=== PATIENT | female | born 1985 | race Caucasian/White ===

== ENCOUNTER → 2016-09-24 | Outpatient (CLI) | payer BC ==
[~2016-09-24] MED LIST: ENOX40IN SQ; HCG INJECTION IM; HYDR-5688 PO; KETO10TA PO; ONDA4TAB10 SL; PRLUDL5 PO; PROG1INJ
[2016-09-24 17:44] LABS: PROGESTERONE < 0.21 ng/mL
== END | disposition home or self-care (01) ==
LOC: C.LAB 10:27
PROVIDERS: ATTEND Specialist
DX: Z31.41 Encounter for fertility testing (principal); O09.01 Supervision of pregnancy with history of infertility, first trimester

== ENCOUNTER → 2016-09-28 | Outpatient (CLI) | payer BC | END | disposition home or self-care (01) | LOC: C.LAB 09:00 | PROVIDERS: ATTEND Specialist | DX: Z31.41 Encounter for fertility testing (principal) ==

== ENCOUNTER → 2016-09-30 | Outpatient (CLI) | payer BC | END | disposition home or self-care (01) | LOC: C.LAB 12:42 | PROVIDERS: ATTEND Specialist | DX: Z31.41 Encounter for fertility testing (principal) ==

== ENCOUNTER 2016-10-05 08:19 | Emergency (ER) | payer BC, OTHER ==
[~2016-10-05] VITALS: Ht 167.6 cm; Wt 58.3 kg
[2016-10-05 08:23] VITALS: TEMP 36.8; Ht 167.6 cm; Wt 58.3 kg
[2016-10-05] MEDS ORDERED: SODIUM CHLORIDE 0.9% 1000ML 1,000 ML IV STA (08:28)
[2016-10-05] MEDS ORDERED: MoRPHine SULFATE 4 MG/ML 1 ML CARP\\VIAL IV STA (08:28)
[2016-10-05] MEDS ORDERED: ONDANSETRON INJ 2 MG/ML 2 ML VIAL IV STA (08:28)
--- NOTE | 2016-10-05 08:41 | EMERGENCY ROOM VISIT NOTE ---
History First contact with patient: 08:21 Chief Complaint: ABDOMINAL PAIN Stated Complaint: AB PAIN Nursing Triage Summary: PATIENT PRESENTS VIA AMBULANCE WITH C/O SEVERE RIGHT ABDOMINAL PAIN PATIENT STATES THE PAIN BEGAN AT 0200 TODAY STATES PAIN IS RLQ AND WRAPS AROUND TO HER BACK PT STATES SHE HAS PASSED OUT ONCE DUE TO PAIN PATIENT STATES SHE IS ON OVARY STIMULATING HORMONES HAS BEEN ON IVF MEDICATIONS FOR THE LAST YEAR STATES SHE HAS NEVER HAD PAIN LIKE THIS BEFORE LMP 09/10/2016 LAST BOWEL MOVEMENT WAS LAST NIGHT PT HAS A HISTORY OF A GASTRIC SLEEVE 04/2015 History of Present Illness The patient is a 31 year old female who presents to the Emergency Room with complaints of right lower quadrant abdominal pain which began in the middle of the name but worsened approximately one hour ago. The patient states that she had an "uncomfortable" feeling in her right lower abdomen around 2 AM. She states that the pain became very severe approximately 1.5 hours ago. She states that she called her , but then had a syncopal episode due to the pain and decided to call 911. The patient has been nauseous, but has not vomited. She denies any associated urinary symptoms. She is currently in the process of IVF and has been for the past year. Her last menstrual period was . She denies any vaginal bleeding or discharge. She has a history of a gastric sleeve a few years ago but denies any other abdominal surgeries. She does report a history of kidney stones. She rates her discomfort a 10/10. She has not taken anything for the pain. Review of Systems A complete 10-point Review of Systems was discussed with the patient, with pertinent positives and negatives listed in the History of Present Illness. All remaining Review of Systems questions can be considered negative unless otherwise specified. Social History Smoking Status: Never Smoker Current/Historical Medications Scheduled Ondasetron Odt (Zofran Odt), 4 MG SL Q6H [Hcg Injection], 1 DOSE IM UD Scheduled PRN Hydrocodone/Acetaminophen 5MG/325MG ([place] 5MG/325MG), 1-2 TABLET PO Q4H PRN for Pain Ketorolac Tromethamine (Toradol), 1 TAB PO TID PRN for Pain Allergies Coded Allergies: No Known Allergies (Unverified , 10/05/16) Physical Exam Vital Signs Date Time Temp Pulse Resp B/P Pulse Ox O2 Delivery O2 Flow Rate FiO2 10/05/16 09:58 67 16 108/66 100 Room Air 10/05/16 08:23 36.8 66 18 117/71 100 Room Air Physical Exam VITALS: Vitals are noted on the nurse's note and reviewed by myself. Vital signs stable. GENERAL: This is a 31-year-old female, in moderate distress secondary to pain, nondiaphoretic, well-developed well-nourished. HEART: Regular rate and rhythm without murmurs gallops or rubs. LUNGS: Clear to auscultation bilaterally without wheezes, rales or rhonchi. ABDOMEN: Positive bowel sounds x 4. Moderate tenderness to the right lower quadrant and suprapubic region with some guarding. NEURO: Patient was alert and oriented to person place and time. Medical Decision & Procedures ER Provider Diagnostic Interpretation: ULTRASOUND OF THE PELVIS FINDINGS: Uterus: The anteflexed uterus is normal in size and echotexture, measuring 8.2 x 5.2 x 6.5 cm. A partially exophytic fibroid arises from the posterior fundus and measures up to 2.1 cm. Small Nabothian cysts are incidentally noted in the cervix. Endometrium: The endometrium is normal in appearance, and the endometrial stripe is normal in thickness measuring up to 0.4 cm. Ovaries: The ovaries are normal in size and morphology. The right ovary measures 5.6 x 3.6 x 4.2 cm and the left ovary measures 5.4 x 3.3 x 4.7 cm. There are numerous large bilateral ovarian follicles. The largest on the right measures up to 2.5 cm and the largest on the left measures up to 2.6 cm. Normal Doppler waveforms are shown within both ovaries. Pelvis: There is trace free fluid in the cul-de-sac. No concerning adnexal lesion is seen. IMPRESSION: 1. No acute sonographic abnormality is identified in the pelvis. 2. The ovaries appear mildly enlarged and there are numerous bilateral follicles measuring up to 2.6 cm. This is likely related to the reported history of IVF treatment. Normal Doppler waveforms are shown in both ovaries. 3. There is trace and likely physiologic free fluid in the cul-de-sac. Laboratory Results 10/05/16 08:26 Red Blood Count 4.06, Mean Corpuscular Volume 88.2, Mean Corpuscular Hemoglobin 30.3, Mean Corpuscular Hemoglobin Concent 34.4, Mean Platelet Volume 10.9, Neutrophils (%) (Auto) 77.4, Lymphocytes (%) (Auto) 17.8, Monocytes (%) (Auto) 3.9, Eosinophils (%) (Auto) 0.4, Basophils (%) (Auto) 0.2, Neutrophils # (Auto) 8.24, Lymphocytes # (Auto) 1.90, Monocytes # (Auto) 0.42, Eosinophils # (Auto) 0.04, Basophils # (Auto) 0.02 10/05/16 08:26 Test 10/05/16 08:26 10/05/16 08:30 White Blood Count 10.65 K/uL (4.8-10.8) Red Blood Count 4.06 M/uL (4.2-5.4) Hemoglobin 12.3 g/dL (12.0-16.0) Hematocrit 35.8 % (37-47) Mean Corpuscular Volume 88.2 fL (80-100) Mean Corpuscular Hemoglobin 30.3 pg (25-34) Mean Corpuscular Hemoglobin Concent 34.4 g/dl (32-36) Platelet Count 239 K/uL (130-400) Mean Platelet Volume 10.9 fL (7.4-10.4) Neutrophils (%) (Auto) 77.4 % Lymphocytes (%) (Auto) 17.8 % Monocytes (%) (Auto) 3.9 % Eosinophils (%) (Auto) 0.4 % Basophils (%) (Auto) 0.2 % Neutrophils # (Auto) 8.24 K/uL (1.4-6.5) Lymphocytes # (Auto) 1.90 K/uL (1.2-3.4) Monocytes # (Auto) 0.42 K/uL (0.11-0.59) Eosinophils # (Auto) 0.04 K/uL (0-0.5) Basophils # (Auto) 0.02 K/uL (0-0.2) RDW Standard Deviation 39.6 fL (36.4-46.3) RDW Coefficient of Variation 12.3 % (11.5-14.5) Immature Granulocyte % (Auto) 0.3 % Immature Granulocyte # (Auto) 0.03 K/uL (0.00-0.02) Anion Gap 11.0 mmol/L (3-11) Est Creatinine Clear Calc Drug Dose 99.1 ml/min Estimated GFR () 122.2 Estimated GFR (Non- 105.5 BUN/Creatinine Ratio 21.5 (10-20) Calcium Level 9.0 mg/dl (8.5-10.1) Total Bilirubin 0.4 mg/dl (0.2-1) Aspartate Amino Transf (AST/SGOT) 11 U/L (15-37) Alanine Aminotransferase (ALT/SGPT) 16 U/L (12-78) Alkaline Phosphatase 60 U/L (45-117) Total Protein 6.9 gm/dl (6.4-8.2) Albumin 3.6 gm/dl (3.4-5.0) Globulin 3.3 gm/dl (2.5-4.0) Albumin/Globulin Ratio 1.1 (0.9-2) Lipase 127 U/L (73-393) Urine Color DK YELLOW Urine Appearance CLOUDY (CLEAR) Urine pH 7.5 (4.5-7.5) Urine Specific [place] 1.039 (1.000-1.030) Urine Protein 1+ (NEG) Urine Glucose (UA) NEG (NEG) Urine Ketones TRACE (NEG) Urine Occult Blood 3+ (NEG) Urine Nitrite NEG (NEG) Urine Bilirubin NEG (NEG) Urine Urobilinogen NEG (NEG) Urine Leukocyte Esterase TRACE (NEG) Urine WBC (Auto) 1-5 /hpf (0-5) Urine RBC (Auto) >30 /hpf (0-4) Urine Hyaline Casts (Auto) >30 /lpf (0-5) Urine Epithelial Cells (Auto) >30 /lpf (0-5) Urine Bacteria (Auto) NEG (NEG) Urine Renal Epithelial Cells /lpf (0-5) Urine Pathogenic Casts /lpf (0) Urine Mucus PRESENT (NONE PRSENT) Urine Test POS (NEG) Medications Administered Medications (Trade) Dose Ordered Sig/Livia Route Start Time Stop Time Status Last Admin Dose Admin Sodium Chloride (Nss 1000ml) 1,000 ml @ 999 mls/hr Q1H1M STAT IV 10/05/16 08:28 10/05/16 09:28 DC 10/05/16 08:37 999 MLS/HR Ondansetron HCl (Zofran Inj) 4 mg NOW STAT IV 10/05/16 08:28 10/05/16 08:30 DC 10/05/16 08:36 4 MG Medical Decision Differential diagnosis includes ovarian cyst, ovarian torsion, ectopic , dysmenorrhea, among others. The patient was evaluated as above. Labs were drawn and IV access was obtained. Imaging studies were performed and read by radiology as above. The patient was initially ordered 4 mg morphine for her discomfort, but her pain resolved without treatment. The patient was reassessed multiple times during their stay in the emergency department and remained in stable condition. The patient is a 31-year-old female who presents today complaining of right lower quadrant abdominal pain. Labs revealed no leukocytosis, anemia or concerning electrolyte abnormalities. Urinalysis was not suggestive of infection. Urine beta hCG was positive, but this is consistent with her IVF therapy. She did receive a triggering injection last night. I did speak with the patient's IVF specialist, who did state that I should expect to see enlarged ovarian follicles on an ultrasound. Ultrasound was performed to rule out torsion and did show bilateral ovarian follicles but no evidence of torsion or ectopic . The patient felt much better after urinating and I do feel that her symptoms may be consistent with renal colic rather than an ovarian source. Additionally, the patient was very anxious that there may be something wrong with her ovary but felt much better after hearing that her ultrasound results were negative. The patient did have 3+ blood in her urine, consistent with renal colic. I discussed options of care with the patient and her , and they agreed that further imaging is not necessary at this time. The patient will be treated conservatively. She was given a prescription for pain medication, Zofran and Toradol and will follow-up with her primary care provider as needed. She has a follow-up scheduled with her IVF specialist tomorrow. She will return sooner for worsening pain or any other new/concerning symptoms. Based on the patient's presentation, lab results, and imaging studies, I feel the patient is stable for outpatient treatment. The patient's case was reviewed with Dr. Coelho, ED attending physician, who agreed with my assessment and treatment plan. Discharge instructions were reviewed with the patient. The patient verbalized understanding of my assessment and treatment plan and was discharged home in good condition. Impression Primary Impression: Renal colic on right side Departure Information Dispostion Home / Self-Care Condition GOOD Prescriptions Ketorolac Tromethamine (TORADOL) 10 Mg Tab 1 TAB PO TID Y for Pain for 5 Days, #15 TAB Prov: Angie Alas PA-C 10/05/16 Ondasetron Odt (ZOFRAN ODT) 4 Mg Tab 4 MG SL Q6H for Nausea, #20 TAB Prov: Angie Alas PA-C 10/05/16 Hydrocodone/Acetaminophen 5MG/325MG ([place] 5MG/325MG) Tab 1-2 TABLET PO Q4H Y for Pain, #20 TAB For Initial Treatment Prov: Angie Alas PA-C 10/05/16 Referrals (PCP) Patient Instructions My [facility] Additional Instructions You have been treated in the Emergency Department for renal colic. Labs today were unremarkable and pelvic ultrasound did not show any evidence of torsion. You have been prescribed [place] to be used for pain control. Take 1-2 tablets every 4-6 hours as needed for pain. This is a narcotic medication. You cannot drive or consume alcohol while on this medicine. This medicine should only be used for pain that cannot be controlled with [id number] pain medicines. You have been prescribed Zofran to be used for any nausea or vomiting. Take as prescribed. Toradol 3 times daily as needed for pain. Follow-up with your primary care provider/HOME OFFICE REPRESENTATIVE as needed. Return to the emergency department with worsening abdominal pain, fevers, vomiting or any other new/concerning symptoms.
[2016-10-05 09:02] LABS: BASO % 0.2 %; BASO ABS # 0.02 K/uL (0-0.2); COMPLETE YES; EOS % 0.4 %; HEMATOCRIT 35.8 % (37-47); IG% 0.3 %; LYMPH % 17.8 %; MEAN CELL VOLUME 88.2 fL (80-100); MEAN CORPUSCULAR HEMOGLOBIN 30.3 pg (25-34); MEAN CORPUSCULAR HGB CONC 34.4 g/dl (32-36); MEAN PLATELET VOLUME 10.9 fL (7.4-10.4); MONO % 3.9 %; NEUT % 77.4 %; PLATELET COUNT 239 K/uL (130-400); RED BLOOD COUNT 4.06 M/uL (4.2-5.4); WHITE BLOOD COUNT 10.65 K/uL (4.8-10.8)
[2016-10-05 09:07] LABS: URINE APPEARANCE CLOUDY (CLEAR); URINE COLOR DK YELLOW; URINE EPITHELIAL CELL AUTO >30 /lpf (0-5); URINE NITRITE NEG (NEG); URINE PH 7.5 (4.5-7.5); URINE SPECIFIC GRAVITY 1.039 (1.000-1.030); UROBILINOGEN NEG (NEG); ZZUR CULT IF INDIC CLEAN CATCH NO
[2016-10-05 09:08] LABS: MANUAL MICROSCOPIC REQUIRED? NO; REVIEW REQ? YES
[2016-10-05 09:10] LABS: URINE BILIRUBIN NEG (NEG)
[2016-10-05 09:16] LABS: SULFASALICYLIC ACID POS (NEG)
[2016-10-05 09:18] LABS: URINE MUCUS PRESENT (NONE PRSENT)
[2016-10-05 09:22] LABS: BUN/CREATININE RATIO 21.5 (10-20); CREATININE 0.75 mg/dl (0.60-1.20); POTASSIUM 3.5 mmol/L (3.5-5.1)
[2016-10-05 09:25] LABS: ALB/GLOB RATIO 1.1 (0.9-2)
[2016-10-05 09:58] VITALS: BP 108/66; PULSE 67; O2SAT 100
[2016-10-05] MEDS ORDERED: HCG INJECTION IM (10:01)
--- NOTE | 2016-10-05 10:05 | DIAGNOSTIC IMAGING REPORT ---
ULTRASOUND OF THE PELVIS CLINICAL HISTORY: Right pelvic pain. IVF of patient. COMPARISON STUDY: No priors. TECHNIQUE: Real-time, grayscale, and color flow sonography of the pelvis is performed both transabdominally and endovaginally. Images are reviewed in the transverse and longitudinal planes. FINDINGS: Uterus: The anteflexed uterus is normal in size and echotexture, measuring 8.2 x 5.2 x 6.5 cm. A partially exophytic fibroid arises from the posterior fundus and measures up to 2.1 cm. Small Nabothian cysts are incidentally noted in the cervix. Endometrium: The endometrium is normal in appearance, and the endometrial stripe is normal in thickness measuring up to 0.4 cm. Ovaries: The ovaries are normal in size and morphology. The right ovary measures 5.6 x 3.6 x 4.2 cm and the left ovary measures 5.4 x 3.3 x 4.7 cm. There are numerous large bilateral ovarian follicles. The largest on the right measures up to 2.5 cm and the largest on the left measures up to 2.6 cm. Normal Doppler waveforms are shown within both ovaries. Pelvis: There is trace free fluid in the cul-de-sac. No concerning adnexal lesion is seen. IMPRESSION: 1. No acute sonographic abnormality is identified in the pelvis. 2. The ovaries appear mildly enlarged and there are numerous bilateral follicles measuring up to 2.6 cm. This is likely related to the reported history of IVF treatment. Normal Doppler waveforms are shown in both ovaries. 3. There is trace and likely physiologic free fluid in the cul-de-sac. Electronically signed by: Satish Rivera M.D. 10/05/2016 10:03 AM Dictated Date/Time: 10/05/2016 9:57 AM
[2016-10-05] MEDS ORDERED: HYDR-5688 PO (10:11)
[2016-10-05] MEDS ORDERED: KETO10TA PO (10:11)
[2016-10-05] MEDS ORDERED: ONDA4TAB10 SL (10:11)
== END 2016-10-05 10:25 | disposition home or self-care (01) ==
LOC: EDBD 08:19 → C.EDB 08:20
DX: N23 Unspecified renal colic (principal); Z87.442 Personal history of urinary calculi

== ENCOUNTER → 2016-11-27 | Outpatient (CLI) | payer BC ==
[~2016-11-27] MED LIST changes: -KETO10TA PO
== END | disposition home or self-care (01) ==
LOC: C.LAB 09:13
PROVIDERS: ATTEND Specialist
DX: Z31.41 Encounter for fertility testing (principal)

== ENCOUNTER → 2016-12-04 | Outpatient (CLI) | payer BC | END | disposition home or self-care (01) | LOC: C.LAB 14:14 | PROVIDERS: ATTEND Specialist | DX: Z31.41 Encounter for fertility testing (principal) ==

== ENCOUNTER → 2016-12-23 | Outpatient (CLI) | payer BC | END | disposition home or self-care (01) | LOC: C.LAB 07:55 | PROVIDERS: ATTEND Specialist | DX: O09.00 Supervision of pregnancy with history of infertility, unspecified trimester (principal); Z3A.00 Weeks of gestation of pregnancy not specified ==

== ENCOUNTER → 2017-02-09 | Outpatient (CLI) | payer BC ==
[2017-02-09 14:41] LABS: HEMATOCRIT 37.8 % (37-47); MEAN CELL VOLUME 88.5 fL (80-100); MEAN CORPUSCULAR HEMOGLOBIN 29.7 pg (25-34); MEAN CORPUSCULAR HGB CONC 33.6 g/dl (32-36); MEAN PLATELET VOLUME 10.3 fL (7.4-10.4); PLATELET COUNT 258 K/uL (130-400); RED BLOOD COUNT 4.27 M/uL (4.2-5.4); WHITE BLOOD COUNT 7.15 K/uL (4.8-10.8)
== END | disposition home or self-care (01) ==
LOC: C.LABSPEC 14:12
PROVIDERS: ATTEND Specialist
DX: Z31.41 Encounter for fertility testing (principal); O09.00 Supervision of pregnancy with history of infertility, unspecified trimester; Z3A.00 Weeks of gestation of pregnancy not specified

== ENCOUNTER → 2017-03-29 | Outpatient (CLI) | payer BC | END | disposition home or self-care (01) | LOC: C.LAB 16:57 | PROVIDERS: ATTEND Specialist | DX: O09.00 Supervision of pregnancy with history of infertility, unspecified trimester (principal); Z3A.00 Weeks of gestation of pregnancy not specified ==

== ENCOUNTER → 2017-04-01 | Outpatient (CLI) | payer BC ==
[~2017-04-01] MED LIST changes: -ENOX40IN SQ; -PRLUDL5 PO; -PROG1INJ
== END | disposition home or self-care (01) ==
LOC: C.LAB 08:39
PROVIDERS: ATTEND Specialist
DX: Z32.00 Encounter for pregnancy test, result unknown (principal)

== ENCOUNTER → 2017-04-05 | Outpatient (CLI) | payer BC ==
[~2017-04-05] MED LIST changes: +ENOX40IN SQ; +PRLUDL5 PO; +PROG1INJ
== END | disposition home or self-care (01) ==
LOC: C.LAB 10:07
PROVIDERS: ATTEND Specialist
DX: Z32.00 Encounter for pregnancy test, result unknown (principal)

== ENCOUNTER 2017-04-09 16:12 | Emergency (ER) | payer BC ==
[~2017-04-09 16:12] MED LIST changes: -ENOX40IN SQ; -HYDR-5688 PO; -ONDA4TAB10 SL; -PRLUDL5 PO; -PROG1INJ
[2017-04-09 16:25] VITALS: TEMP 37.2
--- NOTE | 2017-04-09 16:52 | EMERGENCY ROOM VISIT NOTE ---
History First contact with patient: 16:32 Chief Complaint: ED VAG BLEEDING Stated Complaint: BLEEDING - 6 WEEKS History of Present Illness The patient is a 32 year old female who presents to the Emergency Room with complaints of abdominal cramping and vaginal bleeding that started approximately one hour ago. Vaginal bleeding has been steady with some small clots. Patient's , who is a pathologist, brought a sample of the blood clots in a container to be sent to pathology. Patient states she is approximately 6 weeks and has been undergoing in vitro fertilization treatments. She states that she is on progesterone, estrogen, and Lovenox as part of this treatment. She is G2, P1, with no history of previous miscarriage. She states they have been trending her beta hCG and her most recent one was above 3000. Patient denies any fevers, chills, malaise, nausea, vomiting, chest pain, shortness of breath, back pain, changes in bowel habits, dysuria. Review of Systems A complete 10 point review of systems was reviewed with the patient with pertinent positives and negatives as per history of present illness. All else were negative. Social History Smoking Status: Never Smoker Current/Historical Medications Scheduled Enoxaparin (Lovenox), 40 MG SQ DAILY Prednisolone (Prelone 15MG/5ML), 5 ML PO DAILY Progesterone (Progesterone), 1 ML DAILY Physical Exam Vital Signs Date Time Temp Pulse Resp B/P (MAP) Pulse Ox O2 Delivery O2 Flow Rate FiO2 04/09/17 21:12 117/87 04/09/17 21:01 117/87 04/09/17 20:36 60 100 04/09/17 20:31 95/49 04/09/17 20:21 64 100 04/09/17 20:06 64 100 04/09/17 20:01 98/51 04/09/17 19:59 67 100 04/09/17 19:44 68 100 04/09/17 19:31 156/91 04/09/17 19:29 100 04/09/17 19:14 67 100 04/09/17 19:09 63 118/77 100 Room Air 04/09/17 16:25 37.2 74 20 110/78 99 Room Air Physical Exam CONSTITUTIONAL: No acute distress, but is tearful on exam. Well appearing and well nourished. Alert and oriented X 4 with normal affect. HEENT: Normocephalic, atraumatic. Pupils equal, round and reactive to light, EOMI. TMs normal. Pharynx normal. Moist mucous membranes. NECK: Supple, full active range of motion without discomfort. RESPIRATORY: Clear to auscultation bilaterally with no wheezing, crackles, rhonchi or stridor. Equal expansion bilaterally. CARDIOVASCULAR: Regular rate and rhythm with no murmurs, rubs or gallops. Normal peripheral perfusion. No edema. GASTROINTESTINAL: Mild tenderness in the suprapubic region. Soft and nondistended. Bowel sounds present in all quadrants. No CVA tenderness. Pelvic exam deferred. MUSCULOSKELETAL: Full range of motion of all joints without discomfort. INTEGUMENTARY: No rash or other significant dermatologic conditions noted. NEUROLOGIC: Cranial nerves II-XII grossly intact. No focal neurologic deficits noted. Medical Decision & Procedures ER Provider Diagnostic Interpretation: LIMITED (US) CLINICAL HISTORY: 6 weeks with vaginal bleeding. COMPARISON STUDY: Pelvic ultrasound October 05, 2016. TECHNIQUE: Transabdominal and transvaginal sonography of the pelvis was performed. FINDINGS: This exam is compromised by suboptimal penetration. The uterus measures 9.1 x 6.8 x 7.4 cm. Endometrium measures 1.2 cm in thickness. A 2.5 cm hypoechoic lesion arising from the right aspect of the uterus is unchanged since exam of October 05, 2016 and suggests a subserosal fibroid. Note is made of an 0.8 x 0.4 x 0.6 cm hypoechoic focus within the endometrium. This is nonspecific. Heterogeneity of the myometrium is noted. The right ovary measures 2.8 x 1.6 x 2.2 cm and the left measures 3 x 2.1 x 1.9 cm. Color flow is identified within each ovary. IMPRESSION: 1. Indeterminate 8 mm hypoechoic focus within the endometrium. It's unclear whether this reflects a gestational sac. Assuming a positive test, differential considerations include a normal early intrauterine gestation, missed spontaneous and sonographically occult ectopic . Therefore, close clinical follow-up, including serial beta hCG levels is recommended. 2. Normal sonographic appearance of the ovaries. 3. No change in a suspected 2.5 cm subserosal right uterine fibroid since ultrasound of October 05, 2016. 4. Study compromised by suboptimal penetration. Laboratory Results 04/09/17 17:10 Red Blood Count 4.18, Mean Corpuscular Volume 87.1, Mean Corpuscular Hemoglobin 29.7, Mean Corpuscular Hemoglobin Concent 34.1, Mean Platelet Volume 10.2, Neutrophils (%) (Auto) 60.4, Lymphocytes (%) (Auto) 30.1, Monocytes (%) (Auto) 6.8, Eosinophils (%) (Auto) 2.3, Basophils (%) (Auto) 0.2, Neutrophils # (Auto) 5.34, Lymphocytes # (Auto) 2.66, Monocytes # (Auto) 0.60, Eosinophils # (Auto) 0.20, Basophils # (Auto) 0.02 04/09/17 17:10 Test 04/09/17 17:10 White Blood Count 8.84 K/uL (4.8-10.8) Red Blood Count 4.18 M/uL (4.2-5.4) Hemoglobin 12.4 g/dL (12.0-16.0) Hematocrit 36.4 % (37-47) Mean Corpuscular Volume 87.1 fL (80-100) Mean Corpuscular Hemoglobin 29.7 pg (25-34) Mean Corpuscular Hemoglobin Concent 34.1 g/dl (32-36) Platelet Count 255 K/uL (130-400) Mean Platelet Volume 10.2 fL (7.4-10.4) Neutrophils (%) (Auto) 60.4 % Lymphocytes (%) (Auto) 30.1 % Monocytes (%) (Auto) 6.8 % Eosinophils (%) (Auto) 2.3 % Basophils (%) (Auto) 0.2 % Neutrophils # (Auto) 5.34 K/uL (1.4-6.5) Lymphocytes # (Auto) 2.66 K/uL (1.2-3.4) Monocytes # (Auto) 0.60 K/uL (0.11-0.59) Eosinophils # (Auto) 0.20 K/uL (0-0.5) Basophils # (Auto) 0.02 K/uL (0-0.2) RDW Standard Deviation 39.4 fL (36.4-46.3) RDW Coefficient of Variation 12.2 % (11.5-14.5) Immature Granulocyte % (Auto) 0.2 % Immature Granulocyte # (Auto) 0.02 K/uL (0.00-0.02) Urine Color RED Urine Appearance TURBID (CLEAR) Urine pH (4.5-7.5) Urine Specific [place] 1.025 (1.000-1.030) Urine Protein (NEG) Urine Glucose (UA) (NEG) Urine Ketones (NEG) Urine Occult Blood (NEG) Urine Nitrite (NEG) Urine Bilirubin (NEG) Urine Urobilinogen (NEG) Urine Leukocyte Esterase (NEG) Urine RBC >30 /hpf (0-4) Urine WBC 10-30 /hpf (0-5) Urine Epithelial Cells 0-5 /lpf (0-5) Urine Bacteria 1+ (NEG) Urine Yeast BUDDING (NONE PRSENT) Anion Gap 4.0 mmol/L (3-11) Estimated GFR () 135.2 Estimated GFR (Non- 116.7 BUN/Creatinine Ratio 21.6 (10-20) Calcium Level 9.0 mg/dl (8.5-10.1) Human Chorionic Gonadotropin, Quant 8458 mIU/mL Medications Administered Medications (Trade) Dose Ordered Sig/Livia Route Start Time Stop Time Status Last Admin Dose Admin Acetaminophen 1000 mg/Empty Bag 100 ml @ 400 mls/hr NOW STAT IV 04/09/17 18:16 04/09/17 18:30 DC 04/09/17 19:04 400 MLS/HR Medical Decision CC: Patient presenting with complaint of vaginal bleeding in early Interpretation of Labs: No leukocytosis, not significantly anemic, no significant electrolyte abnormalities, normal renal function. Up-trending beta hCG, although it is lower than would be expected given her previous hCG 4 days ago of 3700. Urinalysis is equivocal for infection, but patient is asymptomatic , she was encouraged to follow up with her OB for this. Differential Diagnosis: Includes, but not limited to threatened miscarriage, ectopic , vaginal bleeding in early , anemia, among others. Medication Reconciliation: I attest that I have personally reviewed the patient' s current medication list. Vital signs review: I reviewed the patient's vital signs and interpret them as follows: T: Afebrile; BP: Normotensive; HR: Within normal limits; RR: Within normal limits; Pulse Ox: Within normal limits on room air. Blood pressure screening: The patient was found to have normal blood pressure on screening and does not require follow-up for repeat blood pressure check. Summary: Patient was evaluated at bedside, history of physical exam performed. Patient is alert and in no acute distress. Mild tenderness of the suprapubic abdomen, abdomen is otherwise benign. Pelvic exam was deferred at patient request. Orders were placed at bedside for labs, UA, pelvic ultrasound to evaluate the . Patient discussed with Dr. Rivas, who agrees with my assessment and plan. Labs reviewed as above, concerning for slow increase of beta hCG in setting of early . Pelvic ultrasound reviewed, no definite IUP identified. Ovaries appear normal and there is no evidence of an ectopic , though this cannot be fully ruled out. I spoke on the phone with Dr. Alexandra, the patient's OB provider, who agrees that this is most likely start of a miscarriage. She recommended that the patient follow up in clinic on Wednesday for repeat ultrasound and lab work. Patient reassessed multiple times throughout ED stay, she maintained well- appearing with no complaints. Patient and updated on all results and plan for discharge with close follow-up with her OB. They verbalized understanding. Patient discharged home in stable condition and ambulatory. Medication Reconcilliation Current Medication List: was personally reviewed by me Blood Pressure Screening Patient's blood pressure: Normal blood pressure Impression Primary Impression: Threatened miscarriage in early Departure Information Dispostion Home / Self-Care Condition GOOD Referrals Janelle Kay M.D. (PCP) Ivett Alexandra M.D. Patient Instructions My [facility] Additional Instructions You should follow-up with Dr. Dominguez in clinic on Wednesday. They will call you to set up your appointment. This will be to do a repeat ultrasound. You can expect to have some heavy bleeding/blood clots and abdominal cramping similar to period cramping over the next 1-2 days. You may take Tylenol as needed for pain. Please return to the ER for any worsening symptoms, including severe pain, heavy vaginal bleeding (soaking through more than 1 pad per hour), dizziness or passing out, fevers/chills/feeling ill, or any other concerns.
[2017-04-09 17:23] LABS: BASO % 0.2 %; BASO ABS # 0.02 K/uL (0-0.2); COMPLETE YES; EOS % 2.3 %; HEMATOCRIT 36.4 % (37-47); IG% 0.2 %; LYMPH % 30.1 %; LYMPH ABS # 2.66 K/uL (1.2-3.4); MEAN CELL VOLUME 87.1 fL (80-100); MEAN CORPUSCULAR HEMOGLOBIN 29.7 pg (25-34); MEAN CORPUSCULAR HGB CONC 34.1 g/dl (32-36); MEAN PLATELET VOLUME 10.2 fL (7.4-10.4); MONO % 6.8 %; NEUT % 60.4 %; PLATELET COUNT 255 K/uL (130-400); RED BLOOD COUNT 4.18 M/uL (4.2-5.4); WHITE BLOOD COUNT 8.84 K/uL (4.8-10.8)
[2017-04-09] MEDS ORDERED: PRLUDL5 PO (17:37)
[2017-04-09] MEDS ORDERED: ENOX40IN SQ (17:37)
[2017-04-09] MEDS ORDERED: PROG1INJ (17:37)
[2017-04-09 17:40] LABS: MANUAL MICROSCOPIC REQUIRED? YES; REVIEW REQ? NO; SULFASALICYLIC ACID POS (NEG); URINE APPEARANCE TURBID (CLEAR); URINE COLOR RED; URINE SPECIFIC GRAVITY 1.025 (1.000-1.030)
[2017-04-09 17:42] LABS: BLOOD UREA NITROGEN 14 mg/dl (7-18); BUN/CREATININE RATIO 21.6 (10-20); CARBON DIOXIDE 28 mmol/L (21-32); CHLORIDE 110 mmol/L (98-107); CREATININE 0.65 mg/dl (0.60-1.20); GLUCOSE 83 mg/dl (70-99); POTASSIUM 3.7 mmol/L (3.5-5.1); SODIUM 142 mmol/L (136-145)
[2017-04-09 17:57] LABS: URINE RBC >30 /hpf (0-4)
[2017-04-09 18:11] LABS: URINE BACTERIA 1+ (NEG)
[2017-04-09] MEDS ORDERED: ACETAMINOPHEN IV 1,000 MG in EMPTY BAG 0 ML IV STA (18:16)
--- NOTE | 2017-04-09 19:17 | DIAGNOSTIC IMAGING REPORT ---
LIMITED (US) CLINICAL HISTORY: 6 weeks with vaginal bleeding. COMPARISON STUDY: Pelvic ultrasound October 05, 2016. TECHNIQUE: Transabdominal and transvaginal sonography of the pelvis was performed. FINDINGS: This exam is compromised by suboptimal penetration. The uterus measures 9.1 x 6.8 x 7.4 cm. Endometrium measures 1.2 cm in thickness. A 2.5 cm hypoechoic lesion arising from the right aspect of the uterus is unchanged since exam of October 05, 2016 and suggests a subserosal fibroid. Note is made of an 0.8 x 0.4 x 0.6 cm hypoechoic focus within the endometrium. This is nonspecific. Heterogeneity of the myometrium is noted. The right ovary measures 2.8 x 1.6 x 2.2 cm and the left measures 3 x 2.1 x 1.9 cm. Color flow is identified within each ovary. IMPRESSION: 1. Indeterminate 8 mm hypoechoic focus within the endometrium. It's unclear whether this reflects a gestational sac. Assuming a positive test, differential considerations include a normal early intrauterine gestation, missed spontaneous and sonographically occult ectopic . Therefore, close clinical follow-up, including serial beta hCG levels is recommended. 2. Normal sonographic appearance of the ovaries. 3. No change in a suspected 2.5 cm subserosal right uterine fibroid since ultrasound of October 05, 2016. 4. Study compromised by suboptimal penetration. Electronically signed by: Tomi Will M.D. 04/09/2017 7:15 PM Dictated Date/Time: 04/09/2017 7:04 PM
[2017-04-09 20:36] VITALS: PULSE 60; O2SAT 100
[2017-04-09 21:12] VITALS: BP 117/87
== END 2017-04-09 21:12 | disposition home or self-care (01) ==
LOC: C.EDB 16:14 → C.EDC 21:12
DX: O20.0 Threatened abortion (principal)

== ENCOUNTER → 2017-04-18 | Outpatient (CLI) | payer BC ==
[~2017-04-18] MED LIST changes: +ENOX40IN SQ; -HCG INJECTION IM; +PRLUDL5 PO; +PROG1INJ
== END | disposition home or self-care (01) ==
LOC: C.LAB 16:07
PROVIDERS: ATTEND Specialist
DX: Z32.00 Encounter for pregnancy test, result unknown (principal)

== ENCOUNTER → 2017-05-02 | Outpatient (CLI) | payer BC | END | disposition home or self-care (01) | LOC: C.LAB 11:02 | PROVIDERS: ATTEND Specialist | DX: Z32.00 Encounter for pregnancy test, result unknown (principal) ==

== ENCOUNTER → 2017-05-19 | Outpatient (CLI) | payer BC ==
[2017-05-19 15:50] LABS: PREG INTERNAL NEGATIVE QC NEG CLEAR BACKGROUND; PREG INTERNAL POSITIVE QC POS CONTROL LINE
== END | disposition home or self-care (01) ==
LOC: C.LAB 14:03
PROVIDERS: ATTEND Specialist
DX: Z31.41 Encounter for fertility testing (principal)

== ENCOUNTER → 2017-06-03 | Outpatient (CLI) | payer BC | END | disposition home or self-care (01) | LOC: C.LAB 11:34 | PROVIDERS: ATTEND Specialist | DX: Z31.41 Encounter for fertility testing (principal) ==

== ENCOUNTER → 2017-08-20 | Outpatient (CLI) | payer BC | END | disposition home or self-care (01) | LOC: C.LAB 09:20 | PROVIDERS: ATTEND Specialist | DX: Z31.41 Encounter for fertility testing (principal) ==

== ENCOUNTER → 2017-09-03 | Outpatient (CLI) | payer BC | END | disposition home or self-care (01) | LOC: C.LAB 08:54 | PROVIDERS: ATTEND Specialist | DX: Z31.41 Encounter for fertility testing (principal) ==

== ENCOUNTER → 2017-09-17 | Outpatient (CLI) | payer BC ==
[~2017-09-17] MED LIST changes: +PRED1SOL12 PO; -PRLUDL5 PO
== END | disposition home or self-care (01) ==
LOC: C.LAB 13:56
PROVIDERS: ATTEND Specialist
DX: O09.00 Supervision of pregnancy with history of infertility, unspecified trimester (principal); Z3A.00 Weeks of gestation of pregnancy not specified

== ENCOUNTER → 2017-09-21 | Outpatient (CLI) | payer BC | END | disposition home or self-care (01) | LOC: C.LAB 14:21 | PROVIDERS: ATTEND Specialist | DX: O09.00 Supervision of pregnancy with history of infertility, unspecified trimester (principal); Z3A.00 Weeks of gestation of pregnancy not specified ==

== ENCOUNTER → 2017-09-23 | Outpatient (CLI) | payer BC | END | disposition home or self-care (01) | LOC: C.LAB 09:55 | PROVIDERS: ATTEND Specialist | DX: O09.00 Supervision of pregnancy with history of infertility, unspecified trimester (principal); Z3A.00 Weeks of gestation of pregnancy not specified ==

== ENCOUNTER → 2017-09-25 | Outpatient (CLI) | payer BC ==
[~2017-09-25] MED LIST changes: -PRED1SOL12 PO; +PRLUDL5 PO
== END | disposition home or self-care (01) ==
LOC: C.LAB 11:16
PROVIDERS: ATTEND Specialist
DX: O09.00 Supervision of pregnancy with history of infertility, unspecified trimester (principal)

== ENCOUNTER → 2017-09-29 | Outpatient (CLI) | payer BC ==
--- NOTE | 2017-09-29 10:58 | DIAGNOSTIC IMAGING REPORT ---
TRANSVAG-FEMALE PELVIS HISTORY: Miscarriage. Bleeding. POSSIBLE MISCARRIAGE COMPARISON: None. FINDINGS: Uterus: Maximum dimension 9.8 cm. Small fibroids measuring 1.5 and 2.0 cm. Endometrial stripe: 12 mm with a moderately complex component of echogenicity. No well-defined intrauterine gestational sac. Right ovary: 2.6 cm maximum dimension with normal vascular flow Left ovary: 2.3 cm maximum dimension with normal vascular flow Miscellaneous:No pelvic free fluid. IMPRESSION: 1. Moderate endometrial thickening at 12 mm with no well-defined intrauterine gestational sac. 2. Normal vascular flow to the ovaries. 3. 2 small uterine fibroids. The above report was generated using voice recognition software. It may contain grammatical, syntax or spelling errors. Electronically signed by: Antony Hammond M.D. 09/29/2017 10:50 AM Dictated Date/Time: 09/29/2017 10:46 AM
== END | disposition home or self-care (01) ==
LOC: C.ULTR 09:44
PROVIDERS: ATTEND Specialist
DX: O09.00 Supervision of pregnancy with history of infertility, unspecified trimester (principal); Z3A.00 Weeks of gestation of pregnancy not specified

== ENCOUNTER → 2017-10-12 | Outpatient (CLI) | payer BC ==
[~2017-10-12] MED LIST changes: +GADAVIST IV PRN
--- NOTE | 2017-10-12 13:01 | DIAGNOSTIC IMAGING REPORT ---
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 Post gadolinium enhancement. Particular attention to the internal artery canals. COMPARISON STUDY: None FINDINGS: Diffusion images are negative for an acute ischemic insult. Signal characteristics of the cerebellar as well as cerebral hemispheres are unremarkable system is midline. Internal auditory canals as well as surrounding soft tissue structures are unremarkable. There is no evidence for abnormal postcontrast enhancement. The 7th and 8th nerves are unremarkable in appearance. Sella and Parasellar regions are unremarkable. IMPRESSION: Normal study The above report was generated using voice recognition software. It may contain grammatical, syntax or spelling errors. Electronically signed by: Antony Hammond M.D. 10/12/2017 1:00 PM Dictated Date/Time: 10/12/2017 12:57 PM
== END | disposition home or self-care (01) ==
LOC: C.MRIBC 10:31
DX: H93.12 Tinnitus, left ear (principal)

== ENCOUNTER → 2017-10-14 | Outpatient (CLI) | payer BC ==
[~2017-10-14] MED LIST changes: -GADAVIST IV PRN
== END | disposition home or self-care (01) ==
LOC: C.LAB 10:12
PROVIDERS: ATTEND Specialist
DX: O09.00 Supervision of pregnancy with history of infertility, unspecified trimester (principal)

== ENCOUNTER → 2017-11-11 | Outpatient (CLI) | payer BC | END | disposition home or self-care (01) | LOC: C.LAB 08:52 | PROVIDERS: ATTEND Specialist | DX: N96 Recurrent pregnancy loss (principal) ==

== ENCOUNTER → 2017-11-12 | Outpatient (CLI) | payer BC ==
[2017-11-12 10:26] LABS: HEMOGLOBIN A1C 4.9 % (4.5-5.6)
[2017-11-17 06:39] LABS: ANTICARDIOLIPID AB IGA <11 APL (< = 11)
== END | disposition home or self-care (01) ==
LOC: C.LAB 09:38
PROVIDERS: ATTEND Specialist
DX: Z31.41 Encounter for fertility testing (principal); Z13.29 Encounter for screening for other suspected endocrine disorder; N96 Recurrent pregnancy loss

== ENCOUNTER → 2017-11-18 | Outpatient (CLI) | payer BC ==
[~2017-11-18] MED LIST changes: +PRED15SY3 PO; -PRLUDL5 PO
== END | disposition home or self-care (01) ==
LOC: C.LAB1850 09:34
PROVIDERS: ATTEND Specialist
DX: Z01.89 Encounter for other specified special examinations (principal)

== ENCOUNTER → 2017-11-26 | Outpatient (CLI) | payer BC ==
[~2017-11-26] MED LIST changes: -PRED15SY3 PO; +PRLUDL5 PO
[2017-11-26 13:43] LABS: LUTEINIZING HORMONE 61.02 IU/L
== END | disposition home or self-care (01) ==
LOC: C.LAB 12:41
PROVIDERS: ATTEND Specialist
DX: Z31.41 Encounter for fertility testing (principal)

== ENCOUNTER → 2018-01-10 | Outpatient (CLI) | payer BC ==
[~2018-01-10] MED LIST changes: +PRED15SY3 PO; -PRLUDL5 PO
[2018-01-10 15:43] LABS: LUTEINIZING HORMONE 32.55 IU/L
== END | disposition home or self-care (01) ==
LOC: C.LAB 14:17
PROVIDERS: ATTEND Specialist
DX: Z31.41 Encounter for fertility testing (principal)